=== PATIENT | male | born 1960 | race Caucasian/White ===

== ENCOUNTER 2023-12-14 10:39 | Emergency (ER) | payer OTHER, SELFPAY ==
[2023-12-14] VITALS (7 sets, daily range): BP systolic 123–139; BP diastolic 59–92; BMI 23.2
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
[2023-12-14] MEDS: ADACEL 0.5 ML IM (11:06)
[2023-12-14] MEDS: MOTRIN 600 MG PO (11:08)
--- NOTE | 2023-12-14 11:20 | EDRN ---
the pts is currently at the bedside
--- NOTE | 2023-12-14 11:25 | EDRN ---
the pt is resting in stretcher in the lowest position, side rails up x2, call carpenter within reach, HOB elevated, no s/s of distress, the pt will not allow this RN to place cervical collar, provider Yolanda Crocker CROSS CUT SAWYER notified, VS WNL, awaiting for the pt to
go to CT
[2023-12-14] MEDS: LET TOPICAL ANESTHETIC GEL 9 ML TOPICAL (12:32)
--- NOTE | 2023-12-14 13:28 | EDRN ---
Yolanda Crocker THERMODYNAMIC PHYSICIST currently at the pts bedside
--- NOTE | 2023-12-14 14:00 | EDRN ---
Yolanda Crocker PLASTIC MAKER currently still at the pts bedside
== END 2023-12-14 15:16 | disposition home or self-care (01) ==
LOC: EMR 10:39
PROVIDERS: EMERGENCY PHYSICIAN Student in an Organized Health Care Education/Training Program; FAMILY PHYSICIAN Family Medicine
DX: S01.511A Laceration without foreign body of lip, initial encounter (principal); S01.21XA Laceration without foreign body of nose, initial encounter; S01.81XA Laceration without foreign body of other part of head, initial encounter; S50.312A Abrasion of left elbow, initial encounter; S60.417A Abrasion of left little finger, initial encounter; S80.211A Abrasion, right knee, initial encounter; V18.0XXA Pedal cycle driver injured in noncollision transport accident in nontraffic accident, initial encounter; Y93.55 Activity, bike riding; Z23 Encounter for immunization
CPT/HCPCS: 99284; 13152; 12013; 90471; 70450; 70486; 72125; 90715